=== PATIENT | female | born 1995 | race Caucasian/White ===

== ENCOUNTER 2018-08-14 18:59 | Emergency (ER) | payer MEDICAID ==
[~2018-08-14] VITALS: Ht 162.6 cm; Wt 50.3 kg
[2018-08-14 19:03] VITALS: Ht 162.6 cm; Wt 50.3 kg
[2018-08-14 20:12] VITALS: BP 110/62
== END 2018-08-14 20:12 | disposition home or self-care (01) ==
LOC: ED 18:59
DX: O99.512 Diseases of the respiratory system complicating pregnancy, second trimester (principal); Z3A.16 16 weeks gestation of pregnancy; Z88.8 Allergy status to other drugs, medicaments and biological substances